=== PATIENT | female | born 1985 | race Caucasian/White ===

== ENCOUNTER → 2019-04-22 | Outpatient (CLI) | payer BC ==
[~2019-04-22] MED LIST: CIPROFLOXIN HC2.5 M1 OPHTHALMIC; KEPPRA 500 MG500 M1 PO
--- NOTE | 2019-04-23 15:08 | EEG ---
[facility] [place] [address] ELECTROENCEPHALOGRAM Name: HUMA GOMEZDANIA Castaneda Room #: REG [facility] [place].#: [id number] Admission: 04/22/19 Attend Phys: Remedios Lopez DO Discharge: Date of : 89 Report #: [id number] THIS REPORT FOR: //name// CC: [facility] physician/PCP Remedios Lopez DATE OF SERVICE: 04/22/2019 This patient had an episode of seizure. EEG was done by placing the electrode by standard 10-20 system of electrode placement. Both referential and sequential montages were used for recording. Background activity is about 11 Hz and 40 microvolt. The patient went to sleep that is associated with bilateral slowing and vertex sharp waves. The patient had an episode of generalized spike and slow wave activities during this EEG. IMPRESSION: This patient had an episode of generalized spike and slow wave activity during this EEG. That finding will be consistent with a diagnosis of generalized seizure disorder, but clinical correlation is recommended. <ELECTRONICALLY SIGNED> By: John Milligan MD 04/23/19 [id number] John Milligan MD /nt
== END ==
LOC: NEURO 08:21
DX: R56.9 Unspecified convulsions (principal)